=== PATIENT | female | born 1975 | race Caucasian/White ===

== ENCOUNTER 2019-10-07 16:25 | Outpatient (CLI) | payer OTHER, SELFPAY ==
--- NOTE | ~2019-10-07 | US_ITS ---
EXAMINATION: US pelvic complete w TV EXAM DATE: 10/07/2019 16:57 INDICATION: Left adnexal fullness. TECHNIQUE: Pelvic transabdominal and transvaginal sonogram was performed. There are multiple graysca le and Doppler images available for interpretation. There is no prior study for comparison. FINDINGS: Uterus is not identified, reportedly patient has had hysterectomy in 2006. The vaginal cuff is unremarkable. There is no free pelvic fluid. Right adnexa: There is cystic region toward the right adnexa measuring 5.0 x 2.7 x 2.7 cm, several lo bulations or septations. This is of uncertain clinical significance given patient has had hysterectom y. If patient still has the right ovary, could be hemorrhagic cyst or endometrioma. If ovary has bee n resected, could be postoperative loculated seroma. There is no solid component to suggest ovarian m alignancy. Left adnexa: The ovary is not identified. There is no adnexal mass. IMPRESSION: Right adnexal anechoic cystic region, could be postoperative chronic seroma, or ovarian h istology if patient still has the right ovary, but most likely benign histology. Reviewed, dictated and finalized at location A. IMPRESSION: Right adnexal anechoic cystic region, could be postoperative chroni c seroma, or ovarian histology if patient still has the right ovary, but most l ikely benign histology.
== END 2019-10-07 16:26 | disposition home or self-care (01) ==
LOC: ANHIMG 16:29
PROVIDERS: PCP Family Medicine; Visit Provider Family Medicine
DX: N94.9 Unspecified condition associated with female genital organs and menstrual cycle (principal)
CPT/HCPCS: 76830; 76856

== ENCOUNTER 2020-01-15 09:11 | Outpatient (CLI) | payer OTHER, SELFPAY ==
--- NOTE | ~2020-01-15 | US_ITS ---
EXAMINATION: US pelvic complete w TV DATE: 01/15/2020 10:53 INDICATION: Pelvic and perineal pain. Cyst of ovary. TECHNIQUE: Multiple transabdominal and endovaginal sonographic images of the pelvis were obtained. COMPARISON: 10/07/2019 FINDINGS: The uterus is not visualized and reportedly surgically absent. The left ovary is also not visualized. The right ovary measures 2.2 x 1.6 x 1.2 cm with internal vascular flow on color Doppler. 7 mm anech oic cyst/follicle in the right ovary. Again seen is a tubular loculated fluid collection following a somewhat serpiginous course at the right adnexa which measures approximately 5 cm in length and up to 2.8 cm in maximal diameter. No associated solid soft tissue component. There is no free fluid in the pelvis. IMPRESSION: 1. Serpiginous tubular loculated fluid collection at the right adnexa with appearance favoring a resi dual hydrosalpinx. 2. Nonvisualized uterus and left ovary which are likely surgically absent. Reviewed, dictated and finalized at location A. IMPRESSION: 1. Serpiginous tubular loculated fluid collection at the right adnexa with appe arance favoring a residual hydrosalpinx. 2. Nonvisualized uterus and left ovary which are likely surgically absent.
== END 2020-01-15 09:12 | disposition home or self-care (01) ==
PROVIDERS: PCP Family Medicine; Visit Provider Physician Assistant
DX: R10.2 Pelvic and perineal pain (principal)
CPT/HCPCS: 76830; 76856

== ENCOUNTER 2023-05-28 07:56 | Day surgery (SDC) | payer OTHER, SELFPAY ==
[2023-01-07 14:29] VITALS: BMI 36.8
[2023-05-12 11:39] VITALS: BMI 77.8
--- NOTE | 2023-05-28 07:34 | P.PNAN_ITS ---
Anes - Initial Pre Proc Eval Procedure: Operation Date: 05/28/23 10:00 Proposed Procedures p Screening Colonoscopy - Zaid Collado MD Date/Time: 05/28/23 07:34 Surgeon: Zaid Collado MD Pre Op Diagnosis: Neoplasm Screening Patient Data Age: 47 Gender: F Height: 1.73 m Weight: 105 kg Allergies Allergy/AdvReac Type Severity Reaction Status Date / Time No Known Allergies Allergy Unknown Verified 05/12/23 11:42 Home Medications Medication Instructions Recorded Confirmed Type Adults Multivitamin 1 tablet PO DAILY 05/12/23 05/28/23 History Patient hx anesthesia problems: none Family hx anesthesia problems: none Results Review: All pre-operative results and documents have been reviewed as part of the pre- operative evaluation. [facility] Past Medical History Medical History Obesity, Class III, BMI 40-49.9 (morbid obesity) Surgical History Surgical History H/O vaginal hysterectomy History of tonsillectomy Family History Family History Mother Breast cancer, Onset Age: 78 Asthma Hypertension Glaucoma Grandparent Hypertension Acute myocardial infarction Social History Social History Smoking status: Never smoker Alcohol intake: never Substance use: never Substance use type: does not use Lack of Transportation: No Lack of Food: Never True Current Housing: I Have Housing Concerned About Future Housing: No Difficulty Paying Gas/Electric Bills: No Difficulty Paying for Meds: No Currently Unemployed: No Education: Associate Degree Difficulty w/ Childcare or Family Care: No Living arrangements: with family Occupation/Education: occupation Gender identity (if verbalized by the patient): Female Spiritual care concerns: No Agree to blood products: Yes Anes - Eval Final PreProcedure Day of Procedure 05/28/23 07:34 Patient weight: obese Heart: regular rate and rhythm Lungs: clear to auscultation Airway: Mallampati scale class II Neurological: alert and oriented Last oral intake: >/= 8 hours ASA classification: II Emergent: no Anesthetic plan: proceed Anesthesia type and monitoring: general GIVS and standard monitoring Results Review: All pre-operative results and documents have been reviewed as part of the pre- operative evaluation. Informed Consent: The patient's anesthetic plan and its attendant risks and benefits were discussed with the patient/family/POA. Questions were solicited and answers provided to the satisfaction of the patient/family/POA.
[2023-05-28 08:41] VITALS: BP 118/80; PULSE 71; RESP 20; TEMP 36.8; O2SAT 99
[2023-05-28] MEDS: LACTATED RINGERS 1,000 ML 150 ML IV CONT (08:53)
--- NOTE | 2023-05-28 08:57 | P.HP_ITS ---
History of Present Illness History of Present Illness Consent: Risks, benefits, and alternatives have been discussed and questions answered. Patient agrees to proceed with procedure. Chief complaint: Neoplasm Screening Narrative: Dania Park is a 47 year old female Presents for screening colonoscopy. Patient's current weight appetite is are normal. She denies abdominal pain. Patient has had no bleeding. Family history is significant for 1 sister having had colon polyps. Review of Systems Review of Systems: Review of Systems is noncontributory. [facility] Past Medical History Medical History Obesity, Class III, BMI 40-49.9 (morbid obesity) Surgical History Surgical History H/O vaginal hysterectomy History of tonsillectomy Family History Family History Mother Breast cancer, Onset Age: 78 Asthma Hypertension Glaucoma Grandparent Hypertension Acute myocardial infarction Social History Social History Smoking status: Never smoker Alcohol intake: never Substance use: never Substance use type: does not use Lack of Transportation: No Lack of Food: Never True Current Housing: I Have Housing Concerned About Future Housing: No Difficulty Paying Gas/Electric Bills: No Difficulty Paying for Meds: No Currently Unemployed: No Education: Associate Degree Difficulty w/ Childcare or Family Care: No Living arrangements: with family Occupation/Education: occupation Gender identity (if verbalized by the patient): Female Spiritual care concerns: No Agree to blood products: Yes Meds Home Medications and Allergies Home Medications Medication Instructions Recorded Confirmed Type Adults Multivitamin 1 tablet PO DAILY 05/12/23 05/28/23 History Allergies Allergy/AdvReac Type Severity Reaction Status Date / Time No Known Allergies Allergy Unknown Verified 05/12/23 11:42 Vital Signs Vital Signs - 24 hr 05/28/23 08:41 Temperature 98.3 F Pulse Rate 71 Respiratory Rate 20 Blood Pressure 118/80 Pulse Oximetry 99 Oxygen Delivery Room Air Exam Narrative: Physical exam reveals patient to be alert vital signs stable. HEENT exam is unremarkable. Patient is anicteric. Lungs are clear to auscultation and percussion. Heart is without murmur or extra sounds. Abdomen rounds are present soft nontender with no organomegaly. Digital external rectal exam is normal. Assessment and Plan Assessment and plan (1) Encounter for screening colonoscopy: Code(s): Z12.11 - Encounter for screening for malignant neoplasm of colon Status: Acute Assessment and Plan: Patient presents today for screening colonoscopy. She appears to be at average risk for colon polyps.
[2023-05-28 10:15] VITALS: BP 102/61; PULSE 65; RESP 16; O2SAT 99
[2023-05-28 10:25] VITALS: BP 114/77; PULSE 63; RESP 16; O2SAT 100
[2023-05-28 10:35] VITALS: BP 116/77; PULSE 57; RESP 15; O2SAT 100
--- NOTE | 2023-05-28 11:16 | WPDANESPN ---
Anes - Prog Note Post-Op Date/Time: 05/28/23 11:16 Cardiovascular status: normal Respiratory status: normal Airway patency: baseline Mental status: baseline Post-Op hydration status: normal Vital Signs: Last Vital Signs Temp 36.8 C 05/28/23 08:41 Pulse 57 L 05/28/23 10:35 Resp 15 05/28/23 10:35 BP 116/77 05/28/23 10:35 Pulse Ox 100 05/28/23 10:35 O2 Del Method Room Air 05/28/23 10:35 Pain Score (VAS): 0 I/O: Intake & Output 05/27/23 05/28/23 05/28/23 23:59 07:59 15:59 Intake Total 500 Balance 500 Post-procedural complaints: none Patient Feedback: Patient satisfied with anesthetic care. Other Findings: Patient vital signs back to baseline. Patient denies nausea and vomiting. Patient's pain under control. Patient OK for discharge.
== END 2023-05-28 10:45 | disposition home or self-care (01) ==
PROVIDERS: PCP Family Medicine; Visit Provider Internal Medicine Gastroenterology
PROC: 0DJD8ZZ Inspection of Lower Intestinal Tract, Via Natural or Artificial Opening Endoscopic (ICD-10-PCS; CPT 45378; principal; 2023-05-28 10:00)
DX: Z12.11 Encounter for screening for malignant neoplasm of colon (principal); Z83.718 Family history of other colon polyps; K64.8 Other hemorrhoids
CPT/HCPCS: 45378